=== PATIENT | female | born 1955 | race Caucasian/White ===

== ENCOUNTER 2018-05-08 12:08 | Day surgery (SDC) | payer OTHER ==
[~2018-05-08 12:08] MED LIST: PROPOFOL 200 MG INJ
[2018-05-08] MEDS ORDERED: LIDOCAINE 2% (SDV) 5 ML INJ (13:56)
[2018-05-08] MEDS ORDERED: PROPOFOL 40 ML (13:56)
[2018-05-08] MEDS ORDERED: FENTAnyl 50 MCG/ML VIAL IV (14:00)
[2018-05-08] MEDS ORDERED: ALBUTEROL 0.083% (NEB) 2.5 MG/3 ML AMP HHN (14:00)
[2018-05-08] MEDS ORDERED: ACETAMINOPHEN 500 MG TAB PO (14:00)
[2018-05-08] MEDS ORDERED: ONDANSETRON 4 MG INJ IV (14:00)
== END 2018-05-08 16:09 | disposition home or self-care (01) ==
LOC: GIL 12:08
DX: K21.0 Gastro-esophageal reflux disease with esophagitis (principal); K29.70 Gastritis, unspecified, without bleeding
CPT/HCPCS: 43239; 88305; 88312; 88313